=== PATIENT | female | born 1970 | race Native Hawaiian/Other Pacific Islander ===

== ENCOUNTER 2019-05-17 11:50 | Outpatient (CLI) | payer OTHER ==
[~2019-05-17] VITALS: Ht 152.4 cm; Wt 73.5 kg
[2019-05-17 12:03] VITALS: BP 126/76; TEMP 98.3
== END 2019-05-17 13:16 | disposition home or self-care (01) ==
LOC: INF 11:50
DX: M81.0 Age-related osteoporosis without current pathological fracture (principal)
CPT/HCPCS: 36415; 82310; 96372; J0897

== ENCOUNTER 2019-10-14 09:02 | Outpatient (CLI) | payer OTHER | END 2019-10-14 20:08 | disposition home or self-care (01) | LOC: US 09:02 | DX: E03.9 Hypothyroidism, unspecified (principal) ==

== ENCOUNTER 2019-11-22 12:36 | Outpatient (CLI) | payer OTHER ==
[~2019-11-22] VITALS: Ht 152.4 cm; Wt 73.5 kg
== END 2019-11-22 19:23 | disposition home or self-care (01) ==
LOC: LAB 12:36
DX: M81.0 Age-related osteoporosis without current pathological fracture (principal)
CPT/HCPCS: 36415; 82310; 96372; J0897